=== PATIENT | male | born 1950 ===

== ENCOUNTER 2020-08-29 02:43 | Inpatient (IN) | payer MEDICARE, OTHER ==
[~2020-08-29] VITALS: Ht 185.4 cm; Wt 114.7 kg
[2020-08-29] MEDS ORDERED: SODIUM CHLORIDE FLUSH 10ML SYR IVF ONE (03:00)
[2020-08-29 03:14] LABS: BASOPHILS % (AUTO) 1 % (0-1); EOSINOPHILS % (AUTO) 2 % (1-7); LYMPHOCYTES % (AUTO) 5 % (22-44); MEAN CORPUSCULAR HEMOGLOBIN 30.3 pg (27.5-34.5); MEAN CORPUSCULAR HGB CONC 32.8 g/dL (33.2-36.2); MEAN PLATELET VOLUME 8.3 fL (7.4-10.4); MONOCYTES % (AUTO) 8 % (2-9); NEUTROPHILS % (AUTO) 85 % (42-75); PLATELET COUNT 289 x10^3/uL (130-400); RED BLOOD COUNT 3.61 x10^6/uL (4.38-5.82); RED CELL DISTRIBUTION WIDTH 15.3 % (9.4-14.8)
[2020-08-29 03:15] LABS: MD NO
[2020-08-29 03:26] LABS: ALANINE AMINOTRANSFERASE 9 U/L (12-78); ALBUMIN 2.5 g/dL (3.4-5.0); ANION GAP 10 mmol/L (5-15); CALCIUM 7.8 mg/dL (8.5-10.1); CHLORIDE 109 mmol/L (98-107)
[2020-08-29] MEDS ORDERED: NITROGLYCERIN OINT 2%, 1GM TP ONE ×2 (03:30→03:49)
[2020-08-29] MEDS ORDERED: LABETALOL 5MG/ML, 20ML IVPush ONE (03:30)
[2020-08-29 03:31] LABS: ALKALINE PHOSPHATASE 87 U/L (45-117); BILIRUBIN,TOTAL 0.3 mg/dL (0.2-1.0); TOTAL PROTEIN 6.4 g/dL (6.4-8.2); TROPONIN I 0.052 ng/mL (0.000-0.045)
[2020-08-29 03:33] LABS: MICROSCOPIC INDICATED
[2020-08-29 03:37] LABS: CHLORIDE,URINE RANDOM 104 mmol/L; POTASSIUM,URINE RANDOM 28 mmol/L; SODIUM,URINE RANDOM 94 mmol/L
[2020-08-29 03:49] LABS: CREATININE,URINE RANDOM 51.4 mg/dL
[2020-08-29] MEDS ORDERED: LABETALOL 5MG/ML, 20ML ONE (03:49)
[2020-08-29] MEDS ORDERED: SODIUM CHLORIDE 0.9% 1,000 ML IV SCH (04:00)
[2020-08-29] MEDS ORDERED: MAGNESIUM SULFATE PMX 2GM/50ML 50 ML IV ONE (04:00)
[2020-08-29] MEDS ORDERED: ONDANSETRON ODT 4 MG PO PRN (04:00)
[2020-08-29] MEDS ORDERED: ONDANSETRON 2MG/ML, 2ML IVPush PRN (04:00)
[2020-08-29] MEDS ORDERED: POLYETHYLENE GLYCOL 17 GM PACKET PO PRN (04:00)
[2020-08-29] MEDS ORDERED: morphine SULFATE 10 MG/ML, 1ML IVPush PRN (04:00)
[2020-08-29] MEDS ORDERED: hydrALAzine 20 MG/ML, 1ML IVPush PRN (04:00)
[2020-08-29] MEDS ORDERED: LABETALOL 5MG/ML, 20ML IVPush PRN (04:00)
[2020-08-29] MEDS ORDERED: OXYcodone IR 5MG TABLET PO PRN (04:00)
[2020-08-29] MEDS ORDERED: BISACODYL 10 MG SUPP PR PRN (04:00)
[2020-08-29] MEDS ORDERED: PROMETHAZINE 25 MG/ML, 1ML IM PRN (04:00)
[2020-08-29] MEDS ORDERED: DOCUSATE 100 MG CAPSULE PO PRN (04:00)
[2020-08-29] MEDS ORDERED: HEPARIN 5,000 UNITS/ML, 1ML ONE ×2 (04:22→12:01)
[2020-08-29] MEDS ORDERED: CEFTRIAXONE PMX 1GM/50ML 50 ML ONE (04:22)
[2020-08-29] MEDS ORDERED: MAGNESIUM SULFATE PMX 2GM/50ML 50 ML ONE (04:22)
[2020-08-29 04:39] LABS: FREE T4 (FREE THYROXINE) 1.04 ng/dL (0.76-1.46)
[2020-08-29] MEDS: AZITHROMYCIN 500 MG in SODIUM CHLORIDE 0.9% 250 ML IV SCH (04:40)
[2020-08-29] MEDS: HEPARIN 5,000 UNITS/ML, 1ML SQ SCH ×2 (04:48→12:06)
[2020-08-29] MEDS: CEFTRIAXONE PMX 2GM/50ML 50 ML IVPB SCH (04:48)
--- NOTE | 2020-08-29 05:16 | NUR ---
pt resting in bed, no complaints at this time, vss
--- NOTE | 2020-08-29 06:14 | NUR ---
pt resting in bed with no complaints, vss
[2020-08-29] MEDS: INSULIN LISPRO 100 UNITS/ML, PEN SQ-INSULIN SCH ×4 (06:15→22:19)
--- NOTE | 2020-08-29 07:03 | NUR ---
REPORT RECIVED, PT LAYING IN BED NO DISTRESS
--- NOTE | 2020-08-29 07:47 | NUR ---
Hospital bed requested for pt.
--- NOTE | 2020-08-29 08:15 | NUR ---
PT IN BED NO CHANGE,
--- NOTE | 2020-08-29 08:42 | NUR ---
PT IN BED, NO CHANGE, GAVE MEAL TRAY
--- NOTE | 2020-08-29 09:44 | NUR ---
Second request for hospital bed for pt.
[2020-08-29 09:49] LABS: TROPONIN I 0.067 ng/mL (0.000-0.045)
--- NOTE | 2020-08-29 10:13 | NUR ---
changed pt to a hospital bed , no change
--- NOTE | 2020-08-29 11:15 | NUR ---
pt in bed no change
[2020-08-29 11:56] LABS: TROPONIN I 0.064 ng/mL (0.000-0.045)
[2020-08-29] MEDS: SEVELAMER CARBONATE 800MG TAB PO SCH ×2 (12:07→17:00)
--- NOTE | 2020-08-29 13:02 | NUR ---
BREAK RN: PT SLEEPING ON HOSPITAL BED W/ CALL LIGHT IN REACH AND SIDE RAILS UPX2. RESP EVEN AND UNLABORED, KESHIA.
--- NOTE | 2020-08-29 15:11 | NUR ---
PT IN BED NO CHANGE
--- NOTE | 2020-08-29 15:31 | NUR ---
I AM ASSUMING CARE OF THIS PT FROM EDDIE (WILLIAM) AT THIS TIME. SBAR WAS EXCHANGED AT THE BEDSIDE.
--- NOTE | 2020-08-29 15:42 | NUR ---
ECHO IS AT THE BEDSIDE FOR STUDY.
[2020-08-29] MEDS: FUROSEMIDE 40 MG/4 ML IV SCH (17:00)
[2020-08-29] MEDS ORDERED: FUROSEMIDE 40 MG/4 ML ONE (17:30)
--- NOTE | 2020-08-29 17:36 | NUR ---
NO INSULIN COVERAGE REQUIRED FOR DINNER
--- NOTE | 2020-08-29 18:55 | NUR ---
DOLORES (RN) IS ASSUMING CARE OF THIS PT AT THIS TIME. SBAR WAS EXCHANGED AT THE BEDSIDE
--- NOTE | 2020-08-29 19:28 | NUR ---
report from william kurtz at 1900. Very brief contact to butch guzman. 1929: Report to WILLIAM locke
[2020-08-29 20:30] VITALS: BP 158/104
[2020-08-29] MEDS ORDERED: FLU VACC QS2020-21(6MOS UP)/PF 60MCG/0.5 ML SYR IM-VACC ONE (22:00)
[2020-08-30 00:08] VITALS: BP 155/91
[2020-08-30] MEDS: CEFTRIAXONE PMX 2GM/50ML 50 ML IVPB SCH (04:28)
[2020-08-30] MEDS: AZITHROMYCIN 500 MG in SODIUM CHLORIDE 0.9% 250 ML IV SCH (05:52)
[2020-08-30 06:22] LABS: BASOPHILS % (AUTO) 1 % (0-1); EOSINOPHILS % (AUTO) 0 % (1-7); LYMPHOCYTES % (AUTO) 4 % (22-44); MEAN CORPUSCULAR HEMOGLOBIN 30.2 pg (27.5-34.5); MEAN CORPUSCULAR HGB CONC 32.7 g/dL (33.2-36.2); MONOCYTES % (AUTO) 7 % (2-9); NEUTROPHILS % (AUTO) 87 % (42-75); PLATELET COUNT 292 x10^3/uL (130-400); RED CELL DISTRIBUTION WIDTH 15.3 % (9.4-14.8)
[2020-08-30 06:30] LABS: CHLORIDE 108 mmol/L (98-107); MD NO
[2020-08-30 06:41] LABS: % IRON SATURATION 9 % (20-55); ALANINE AMINOTRANSFERASE 10 U/L (12-78); ALBUMIN 2.2 g/dL (3.4-5.0); ALKALINE PHOSPHATASE 75 U/L (45-117); ANION GAP 15 mmol/L (5-15); BILIRUBIN,TOTAL 0.3 mg/dL (0.2-1.0); CALCIUM 7.9 mg/dL (8.5-10.1); CHOL/HDL RATIO 5.3; CHOLESTEROL, TOTAL 255 mg/dL (140-239); HDL CHOL % 19 % (26-37); HDL CHOLESTEROL (DIRECT) 48 mg/dL (40-60); IRON LEVEL 19 mcg/dL (65-175); LDL CHOLESTEROL,CALCULATED 182 mg/dL (54-169); LDL/HDL RATIO 3.8 (0.5-3.0); TOTAL IRON BINDING CAPACITY 209 mcg/dL (250-450); TOTAL PROTEIN 6.3 g/dL (6.4-8.2); TRIGLYCERIDES 123 mg/dL (50-200); VLDL CHOLESTEROL 25 mg/dL (0-25)
[2020-08-30 06:55] VITALS: BP 134/91
[2020-08-30] MEDS: INSULIN LISPRO 100 UNITS/ML, PEN SQ-INSULIN SCH ×4 (07:00→20:02)
[2020-08-30] MEDS: SEVELAMER CARBONATE 800MG TAB PO SCH ×3 (08:00→17:52)
[2020-08-30 12:02] LABS: TROPONIN I 0.077 ng/mL (0.000-0.045)
[2020-08-30] MEDS: CALCITRIOL 0.25 MCG CAPSULE PO SCH (14:46)
[2020-08-30] MEDS: LISINOPRIL 5 MG TABLET PO SCH (14:46)
[2020-08-30] MEDS: FUROSEMIDE 40 MG/4 ML IV SCH ×2 (14:47→17:09)
[2020-08-30 15:04] VITALS: BP 158/116
[2020-08-30 15:31] VITALS: BP 164/114
[2020-08-30] MEDS ORDERED: DILTIAZEM 5 MG/ML, 5ML ONE (21:41)
[2020-08-30] MEDS ORDERED: DILTIAZEM 5 MG/ML, 5ML IVPush ONE ×2 (22:00→22:30)
[2020-08-30] MEDS: IRON SUCROSE COMPLEX 100MG/5ML IV SCH (23:14)
[2020-08-30 23:30] VITALS: BP 148/90
[2020-08-30] MEDS: DILTIAZEM 125 MG in SODIUM CHLORIDE 0.9% 100 ML IV SCH (23:33)
[2020-08-31] MEDS ORDERED: DILTIAZEM 5 MG/ML, 5ML IVPush ONE (00:30)
[2020-08-31] MEDS ORDERED: MAGNESIUM SULFATE PMX 2GM/50ML 50 ML IV ONE (00:30)
[2020-08-31] MEDS ORDERED: HEPARIN 5,000 UNITS/ML, 1ML IV ONE (00:30)
[2020-08-31 00:35] VITALS: BP 122/77
[2020-08-31 00:37] VITALS: BP 113/79
[2020-08-31 00:51] LABS: TROPONIN I 0.074 ng/mL (0.000-0.045)
[2020-08-31] MEDS: HEPARIN 25,000 UNITS/250ML PMX 250 ML IV PRN ×2 (00:56→18:21)
[2020-08-31] MEDS: CEFTRIAXONE PMX 2GM/50ML 50 ML IVPB SCH (04:19)
[2020-08-31] MEDS: AZITHROMYCIN 500 MG in SODIUM CHLORIDE 0.9% 250 ML IV SCH (05:37)
[2020-08-31] MEDS: INSULIN LISPRO 100 UNITS/ML, PEN SQ-INSULIN SCH ×4 (06:36→21:54)
[2020-08-31 07:53] VITALS: BP 144/90
[2020-08-31 08:51] LABS: TROPONIN I 0.058 ng/mL (0.000-0.045)
[2020-08-31] MEDS: HEPARIN 5,000 UNITS/ML, 1ML IV PRN ×2 (09:14→18:22)
[2020-08-31] MEDS: SEVELAMER CARBONATE 800MG TAB PO SCH ×3 (09:40→18:20)
[2020-08-31] MEDS: FUROSEMIDE 40 MG/4 ML IV SCH ×2 (09:40→18:29)
[2020-08-31] MEDS: IRON SUCROSE COMPLEX 100MG/5ML IV SCH (09:41)
[2020-08-31] MEDS: CALCITRIOL 0.25 MCG CAPSULE PO SCH (09:41)
[2020-08-31] MEDS: LISINOPRIL 5 MG TABLET PO SCH (09:41)
[2020-08-31 10:41] LABS: BASOPHILS % (AUTO) 1 % (0-1); EOSINOPHILS % (AUTO) 2 % (1-7); LYMPHOCYTES % (AUTO) 7 % (22-44); MEAN CORPUSCULAR HEMOGLOBIN 30.8 pg (27.5-34.5); MEAN CORPUSCULAR HGB CONC 33.2 g/dL (33.2-36.2); MEAN PLATELET VOLUME 9.1 fL (7.4-10.4); MONOCYTES % (AUTO) 9 % (2-9); NEUTROPHILS % (AUTO) 82 % (42-75); PLATELET COUNT 287 x10^3/uL (130-400); RED BLOOD COUNT 3.49 x10^6/uL (4.38-5.82); RED CELL DISTRIBUTION WIDTH 15.4 % (9.4-14.8)
[2020-08-31 10:42] LABS: MD NO
[2020-08-31 11:18] LABS: ANION GAP 12 mmol/L (5-15); CALCIUM 7.7 mg/dL (8.5-10.1); CHLORIDE 106 mmol/L (98-107)
[2020-08-31 11:21] LABS: ALANINE AMINOTRANSFERASE 11 U/L (12-78); ALKALINE PHOSPHATASE 69 U/L (45-117); BILIRUBIN,TOTAL 0.2 mg/dL (0.2-1.0); CREATININE 8.67 mg/dL (0.7-1.3); TOTAL PROTEIN 5.3 g/dL (6.4-8.2)
[2020-08-31 12:46] VITALS: BP 137/76
[2020-08-31] MEDS: DILTIAZEM 125 MG in SODIUM CHLORIDE 0.9% 100 ML IV SCH (13:18)
[2020-08-31] MEDS ORDERED: DILTIAZEM 120 MG TABLET PO SCH (21:00)
[2020-08-31 22:12] VITALS: BP 129/82
[2020-09-01 01:05] VITALS: BP 132/79
[2020-09-01] MEDS: CEFTRIAXONE PMX 2GM/50ML 50 ML IVPB SCH (04:36)
[2020-09-01] MEDS: AZITHROMYCIN 500 MG in SODIUM CHLORIDE 0.9% 250 ML IV SCH (06:40)
[2020-09-01 07:04] VITALS: BP 132/86
[2020-09-01] MEDS: METOPROLOL TARTRATE 25 MG TAB PO SCH ×2 (07:45→18:46)
[2020-09-01] MEDS: CALCITRIOL 0.25 MCG CAPSULE PO SCH (07:45)
[2020-09-01] MEDS: INSULIN LISPRO 100 UNITS/ML, PEN SQ-INSULIN SCH ×4 (07:45→21:37)
[2020-09-01] MEDS: FUROSEMIDE 40 MG/4 ML IV SCH ×2 (07:45→17:00)
[2020-09-01] MEDS: SEVELAMER CARBONATE 800MG TAB PO SCH ×3 (07:45→18:46)
[2020-09-01] MEDS: IRON SUCROSE COMPLEX 100MG/5ML IV SCH (07:45)
[2020-09-01] MEDS: LISINOPRIL 5 MG TABLET PO SCH (07:45)
[2020-09-01] MEDS: HEPARIN 5,000 UNITS/ML, 1ML IV PRN (09:42)
[2020-09-01] MEDS: DILTIAZEM 30 MG TABLET PO SCH ×3 (11:19→21:36)
[2020-09-01] MEDS: HEPARIN 25,000 UNITS/250ML PMX 250 ML IV PRN (13:34)
[2020-09-01 13:39] VITALS: BP 121/79
[2020-09-01 18:39] VITALS: BP 132/92
[2020-09-01] MEDS: ACETAMINOPHEN 325 MG TABLET PO PRN (18:46)
[2020-09-02 00:32] VITALS: BP 139/83
[2020-09-02] MEDS: CEFTRIAXONE PMX 2GM/50ML 50 ML IVPB SCH (04:30)
[2020-09-02 06:06] LABS: BASOPHILS % (AUTO) 1 % (0-1); EOSINOPHILS % (AUTO) 5 % (1-7); LYMPHOCYTES % (AUTO) 12 % (22-44); MEAN CORPUSCULAR HEMOGLOBIN 31.2 pg (27.5-34.5); MEAN CORPUSCULAR HGB CONC 33.6 g/dL (33.2-36.2); MEAN PLATELET VOLUME 8.7 fL (7.4-10.4); MONOCYTES % (AUTO) 12 % (2-9); NEUTROPHILS % (AUTO) 70 % (42-75); PLATELET COUNT 276 x10^3/uL (130-400); RED BLOOD COUNT 3.26 x10^6/uL (4.38-5.82)
[2020-09-02] MEDS: DILTIAZEM 30 MG TABLET PO SCH ×4 (06:10→22:35)
[2020-09-02] MEDS: METOPROLOL TARTRATE 25 MG TAB PO SCH ×2 (06:10→17:43)
[2020-09-02] MEDS: AZITHROMYCIN 500 MG in SODIUM CHLORIDE 0.9% 250 ML IV SCH (06:10)
[2020-09-02 06:11] LABS: MD NO
[2020-09-02 06:15] LABS: ANION GAP 6 mmol/L (5-15); CALCIUM 8.1 mg/dL (8.5-10.1); CHLORIDE 99 mmol/L (98-107); CREATININE 5.35 mg/dL (0.7-1.3)
[2020-09-02] MEDS: INSULIN LISPRO 100 UNITS/ML, PEN SQ-INSULIN SCH ×4 (07:00→22:46)
[2020-09-02] MEDS ORDERED: POTASSIUM CHLORIDE 20 MEQ TAB.ER.PRT PO ONE (07:30)
[2020-09-02] MEDS: SEVELAMER CARBONATE 800MG TAB PO SCH ×3 (08:00→17:40)
[2020-09-02 08:06] VITALS: BP 138/86
[2020-09-02] MEDS ORDERED: LIDOCAINE 1%, 20ML ONE (09:49)
[2020-09-02] MEDS ORDERED: NALOXONE 1 MG/ML, 2ML ONE (10:00)
[2020-09-02] MEDS ORDERED: FENTANYL PF 100 MCG/2ML ONE (10:00)
[2020-09-02] MEDS ORDERED: MIDAZOLAM 1 MG/ML, 5ML ONE (10:00)
[2020-09-02] MEDS ORDERED: FLUMAZENIL 0.1 MG/1 ML, 5ML ONE (10:00)
[2020-09-02] MEDS ORDERED: ARANESP 60 MCG/ML **ESRD SQ SCH (11:30)
[2020-09-02] MEDS: CALCITRIOL 0.25 MCG CAPSULE PO SCH (12:13)
[2020-09-02] MEDS: IRON SUCROSE COMPLEX 100MG/5ML IV SCH (12:14)
[2020-09-02] MEDS: LISINOPRIL 5 MG TABLET PO SCH (12:14)
[2020-09-02] MEDS ORDERED: POTASSIUM CHLORIDE 20 MEQ TAB.ER.PRT ONE (12:31)
[2020-09-02] MEDS: FUROSEMIDE 40 MG/4 ML IV SCH ×2 (12:35→17:40)
[2020-09-02 13:15] VITALS: BP 112/71
[2020-09-02 15:43] LABS: ANA SCREEN NEGATIVE (Negative)
[2020-09-02 19:04] VITALS: BP 134/89
[2020-09-03 00:49] VITALS: BP 139/85
[2020-09-03] MEDS: CEFTRIAXONE PMX 2GM/50ML 50 ML IVPB SCH (04:41)
[2020-09-03] MEDS: METOPROLOL TARTRATE 25 MG TAB PO SCH ×2 (06:26→17:41)
[2020-09-03] MEDS: DILTIAZEM 30 MG TABLET PO SCH ×4 (06:26→21:17)
[2020-09-03] MEDS: AZITHROMYCIN 500 MG in SODIUM CHLORIDE 0.9% 250 ML IV SCH (06:27)
[2020-09-03] MEDS: HEPARIN 25,000 UNITS/250ML PMX 250 ML IV PRN ×2 (06:30→23:43)
[2020-09-03] MEDS: HEPARIN 5,000 UNITS/ML, 1ML IV PRN ×3 (06:35→21:27)
[2020-09-03] MEDS: INSULIN LISPRO 100 UNITS/ML, PEN SQ-INSULIN SCH ×4 (07:00→21:16)
[2020-09-03 07:30] VITALS: BP 134/83
[2020-09-03] MEDS: SEVELAMER CARBONATE 800MG TAB PO SCH ×3 (08:00→17:41)
[2020-09-03] MEDS: FUROSEMIDE 40 MG/4 ML IV SCH ×2 (10:33→17:41)
[2020-09-03] MEDS: IRON SUCROSE COMPLEX 100MG/5ML IV SCH (10:34)
[2020-09-03] MEDS: CALCITRIOL 0.25 MCG CAPSULE PO SCH (10:34)
[2020-09-03] MEDS: LISINOPRIL 5 MG TABLET PO SCH (14:05)
[2020-09-03 14:06] VITALS: BP 150/89
[2020-09-03 15:18] VITALS: BP 143/81
[2020-09-03 21:12] VITALS: BP 142/88
[2020-09-04 02:04] VITALS: BP 143/93
[2020-09-04] MEDS: CEFTRIAXONE PMX 2GM/50ML 50 ML IVPB SCH (04:21)
[2020-09-04] MEDS: METOPROLOL TARTRATE 25 MG TAB PO SCH ×2 (05:59→18:33)
[2020-09-04] MEDS: DILTIAZEM 30 MG TABLET PO SCH ×4 (05:59→21:06)
[2020-09-04] MEDS: INSULIN LISPRO 100 UNITS/ML, PEN SQ-INSULIN SCH ×4 (07:00→21:00)
[2020-09-04 07:54] VITALS: BP 144/89
[2020-09-04] MEDS: CALCITRIOL 0.25 MCG CAPSULE PO SCH (08:42)
[2020-09-04] MEDS: SEVELAMER CARBONATE 800MG TAB PO SCH ×3 (08:42→17:16)
[2020-09-04] MEDS: FUROSEMIDE 40 MG/4 ML IV SCH ×2 (08:43→17:17)
[2020-09-04] MEDS: LISINOPRIL 5 MG TABLET PO SCH (08:43)
[2020-09-04] MEDS: HEPARIN 5,000 UNITS/ML, 1ML IV PRN ×2 (11:12→20:55)
[2020-09-04 14:44] VITALS: BP 145/89
[2020-09-04 17:16] VITALS: BP 154/96
[2020-09-04 18:31] VITALS: BP 150/99
[2020-09-04] MEDS: HEPARIN 25,000 UNITS/250ML PMX 250 ML IV PRN (18:34)
[2020-09-05 02:26] VITALS: BP 147/73
[2020-09-05 04:05] LABS: BASOPHILS % (AUTO) 1 % (0-1); EOSINOPHILS % (AUTO) 5 % (1-7); LYMPHOCYTES % (AUTO) 11 % (22-44); MEAN CORPUSCULAR HEMOGLOBIN 30.3 pg (27.5-34.5); MEAN CORPUSCULAR HGB CONC 32.5 g/dL (33.2-36.2); MEAN PLATELET VOLUME 8.4 fL (7.4-10.4); MONOCYTES % (AUTO) 10 % (2-9); NEUTROPHILS % (AUTO) 73 % (42-75); PLATELET COUNT 308 x10^3/uL (130-400); RED BLOOD COUNT 3.67 x10^6/uL (4.38-5.82); RED CELL DISTRIBUTION WIDTH 14.8 % (9.4-14.8)
[2020-09-05] MEDS: CEFTRIAXONE PMX 2GM/50ML 50 ML IVPB SCH (04:06)
[2020-09-05 04:07] LABS: ANION GAP 9 mmol/L (5-15); CALCIUM 8.3 mg/dL (8.5-10.1); CHLORIDE 99 mmol/L (98-107)
[2020-09-05 04:08] LABS: MD NO
[2020-09-05 04:11] LABS: ALANINE AMINOTRANSFERASE 19 U/L (12-78); ALKALINE PHOSPHATASE 81 U/L (45-117); BILIRUBIN,TOTAL 0.6 mg/dL (0.2-1.0); CREATININE 7.11 mg/dL (0.7-1.3)
[2020-09-05] MEDS: DILTIAZEM 30 MG TABLET PO SCH ×4 (06:12→22:25)
[2020-09-05] MEDS: METOPROLOL TARTRATE 25 MG TAB PO SCH ×2 (06:13→17:27)
[2020-09-05] MEDS: INSULIN LISPRO 100 UNITS/ML, PEN SQ-INSULIN SCH ×4 (06:19→22:26)
[2020-09-05] MEDS: FUROSEMIDE 40 MG/4 ML IV SCH ×2 (07:30→17:27)
[2020-09-05] MEDS: HEPARIN 25,000 UNITS/250ML PMX 250 ML IV PRN (07:48)
[2020-09-05 08:24] VITALS: BP 141/86
[2020-09-05] MEDS: SEVELAMER CARBONATE 800MG TAB PO SCH ×3 (12:00→17:27)
[2020-09-05] MEDS ORDERED: ERGOCALCIFEROL 50,000 UNIT CAPSULE PO SCH (12:00)
[2020-09-05] MEDS: CALCITRIOL 0.25 MCG CAPSULE PO SCH (14:20)
[2020-09-05] MEDS: LISINOPRIL 5 MG TABLET PO SCH (14:22)
[2020-09-05 14:26] VITALS: BP 108/67
[2020-09-05 14:53] VITALS: BP 110/76
[2020-09-05] MEDS: APIXABAN 5 MG TABLET PO SCH (15:44)
[2020-09-05 20:49] VITALS: BP 121/70
[2020-09-06 02:09] VITALS: BP 112/81
[2020-09-06] MEDS: CEFTRIAXONE PMX 2GM/50ML 50 ML IVPB SCH (04:30)
[2020-09-06] MEDS: METOPROLOL TARTRATE 25 MG TAB PO SCH ×2 (06:01→17:46)
[2020-09-06] MEDS: APIXABAN 5 MG TABLET PO SCH ×2 (06:01→20:23)
[2020-09-06] MEDS: DILTIAZEM 30 MG TABLET PO SCH ×4 (06:01→22:53)
[2020-09-06] MEDS: INSULIN LISPRO 100 UNITS/ML, PEN SQ-INSULIN SCH ×4 (06:08→21:00)
[2020-09-06 07:28] VITALS: BP 133/85
[2020-09-06] MEDS: FUROSEMIDE 40 MG/4 ML IV SCH ×2 (07:58→16:38)
[2020-09-06] MEDS: LISINOPRIL 5 MG TABLET PO SCH (07:59)
[2020-09-06] MEDS: SEVELAMER CARBONATE 800MG TAB PO SCH ×3 (07:59→16:38)
[2020-09-06] MEDS: CALCITRIOL 0.25 MCG CAPSULE PO SCH (08:27)
[2020-09-06 08:54] LABS: ANION GAP 7 mmol/L (5-15); CALCIUM 8.5 mg/dL (8.5-10.1); CHLORIDE 98 mmol/L (98-107); CREATININE 6.33 mg/dL (0.7-1.3)
[2020-09-06 13:46] VITALS: BP 115/72
[2020-09-06 19:44] VITALS: BP 113/56
[2020-09-06 20:24] VITALS: BP 119/77
[2020-09-07 01:05] VITALS: BP 134/84
[2020-09-07] MEDS: CEFTRIAXONE PMX 2GM/50ML 50 ML IVPB SCH (05:05)
[2020-09-07 06:04] LABS: ALANINE AMINOTRANSFERASE 21 U/L (12-78); ALBUMIN 2.2 g/dL (3.4-5.0); ANION GAP 8 mmol/L (5-15); CALCIUM 8.4 mg/dL (8.5-10.1); CHLORIDE 97 mmol/L (98-107)
[2020-09-07 06:06] LABS: BASOPHILS % (AUTO) 1 % (0-1); EOSINOPHILS % (AUTO) 5 % (1-7); LYMPHOCYTES % (AUTO) 7 % (22-44); MEAN CORPUSCULAR HGB CONC 32.8 g/dL (33.2-36.2); MEAN PLATELET VOLUME 8.3 fL (7.4-10.4); MONOCYTES % (AUTO) 11 % (2-9); NEUTROPHILS % (AUTO) 77 % (42-75); PLATELET COUNT 315 x10^3/uL (130-400); RED BLOOD COUNT 3.49 x10^6/uL (4.38-5.82); RED CELL DISTRIBUTION WIDTH 14.8 % (9.4-14.8)
[2020-09-07 06:07] LABS: ALKALINE PHOSPHATASE 87 U/L (45-117); BILIRUBIN,TOTAL 0.4 mg/dL (0.2-1.0); CREATININE 7.77 mg/dL (0.7-1.3); TOTAL PROTEIN 6.1 g/dL (6.4-8.2)
[2020-09-07 06:27] LABS: MD NO
[2020-09-07 06:34] VITALS: BP 118/73
[2020-09-07] MEDS: METOPROLOL TARTRATE 25 MG TAB PO SCH ×2 (06:37→16:01)
[2020-09-07] MEDS: DILTIAZEM 30 MG TABLET PO SCH ×4 (06:37→21:17)
[2020-09-07] MEDS: INSULIN LISPRO 100 UNITS/ML, PEN SQ-INSULIN SCH ×4 (06:59→21:26)
[2020-09-07 07:20] VITALS: BP 109/71
[2020-09-07] MEDS: APIXABAN 5 MG TABLET PO SCH ×2 (10:18→21:17)
[2020-09-07] MEDS: FUROSEMIDE 40 MG/4 ML IV SCH ×2 (10:18→16:01)
[2020-09-07] MEDS: CALCITRIOL 0.25 MCG CAPSULE PO SCH (10:18)
[2020-09-07] MEDS: LISINOPRIL 5 MG TABLET PO SCH (10:18)
[2020-09-07] MEDS: SEVELAMER CARBONATE 800MG TAB PO SCH ×3 (10:26→16:01)
[2020-09-07 13:11] VITALS: BP 109/71
[2020-09-07 21:33] VITALS: BP 119/73
[2020-09-07 23:50] VITALS: BP 120/79
[2020-09-08 06:11] LABS: BASOPHILS % (AUTO) 1 % (0-1); EOSINOPHILS % (AUTO) 6 % (1-7); LYMPHOCYTES % (AUTO) 8 % (22-44); MEAN CORPUSCULAR HEMOGLOBIN 31.1 pg (27.5-34.5); MEAN CORPUSCULAR HGB CONC 32.9 g/dL (33.2-36.2); MEAN PLATELET VOLUME 8.4 fL (7.4-10.4); MONOCYTES % (AUTO) 10 % (2-9); NEUTROPHILS % (AUTO) 74 % (42-75); PLATELET COUNT 320 x10^3/uL (130-400); RED BLOOD COUNT 3.45 x10^6/uL (4.38-5.82); RED CELL DISTRIBUTION WIDTH 14.7 % (9.4-14.8)
[2020-09-08 06:17] LABS: ALBUMIN 2.2 g/dL (3.4-5.0); ANION GAP 9 mmol/L (5-15); CALCIUM 8.3 mg/dL (8.5-10.1); CHLORIDE 97 mmol/L (98-107)
[2020-09-08 06:22] LABS: ALANINE AMINOTRANSFERASE 21 U/L (12-78); ALKALINE PHOSPHATASE 91 U/L (45-117); BILIRUBIN,TOTAL 0.5 mg/dL (0.2-1.0); TOTAL PROTEIN 6.1 g/dL (6.4-8.2)
[2020-09-08] MEDS: INSULIN LISPRO 100 UNITS/ML, PEN SQ-INSULIN SCH ×4 (06:32→21:36)
[2020-09-08] MEDS: METOPROLOL TARTRATE 25 MG TAB PO SCH ×2 (06:40→16:26)
[2020-09-08] MEDS: DILTIAZEM 30 MG TABLET PO SCH ×4 (06:40→21:37)
[2020-09-08 06:43] VITALS: BP 127/80
[2020-09-08 06:43] LABS: MD NO
[2020-09-08] MEDS ORDERED: POTASSIUM CHLORIDE 20 MEQ TAB.ER.PRT PO ONE (08:30)
[2020-09-08] MEDS: CALCITRIOL 0.25 MCG CAPSULE PO SCH (09:20)
[2020-09-08] MEDS: FUROSEMIDE 40 MG/4 ML IV SCH (09:21)
[2020-09-08] MEDS: APIXABAN 5 MG TABLET PO SCH ×2 (09:21→21:36)
[2020-09-08] MEDS: LISINOPRIL 5 MG TABLET PO SCH (09:21)
[2020-09-08] MEDS: SEVELAMER CARBONATE 800MG TAB PO SCH ×4 (09:21→17:00)
[2020-09-08] MEDS: CEFTRIAXONE PMX 2GM/50ML 50 ML IVPB SCH (16:24)
[2020-09-08] MEDS: FUROSEMIDE 80 MG TABLET PO SCH (16:25)
[2020-09-08 21:26] VITALS: BP 128/81
[2020-09-08] MEDS: ACETAMINOPHEN 325 MG TABLET PO PRN (21:37)
[2020-09-09 02:03] VITALS: BP 131/80
[2020-09-09] MEDS: METOPROLOL TARTRATE 25 MG TAB PO SCH ×2 (06:38→17:13)
[2020-09-09] MEDS: DILTIAZEM 30 MG TABLET PO SCH ×4 (06:39→21:34)
[2020-09-09] MEDS: INSULIN LISPRO 100 UNITS/ML, PEN SQ-INSULIN SCH ×4 (07:00→21:35)
[2020-09-09 07:14] VITALS: BP 127/87
[2020-09-09 07:20] LABS: BASOPHILS % (AUTO) 1 % (0-1); EOSINOPHILS % (AUTO) 6 % (1-7); LYMPHOCYTES % (AUTO) 8 % (22-44); MEAN CORPUSCULAR HEMOGLOBIN 31.2 pg (27.5-34.5); MEAN PLATELET VOLUME 8.2 fL (7.4-10.4); MONOCYTES % (AUTO) 11 % (2-9); NEUTROPHILS % (AUTO) 73 % (42-75); PLATELET COUNT 353 x10^3/uL (130-400); RED CELL DISTRIBUTION WIDTH 14.8 % (9.4-14.8)
[2020-09-09 07:29] LABS: MD NO
[2020-09-09 07:30] LABS: ANION GAP 8 mmol/L (5-15); CALCIUM 8.7 mg/dL (8.5-10.1); CHLORIDE 101 mmol/L (98-107); CREATININE 7.46 mg/dL (0.7-1.3)
[2020-09-09] MEDS: LISINOPRIL 5 MG TABLET PO SCH (08:36)
[2020-09-09] MEDS: APIXABAN 5 MG TABLET PO SCH ×2 (08:36→21:34)
[2020-09-09] MEDS: FUROSEMIDE 80 MG TABLET PO SCH ×2 (08:36→21:34)
[2020-09-09] MEDS: CALCITRIOL 0.25 MCG CAPSULE PO SCH (08:36)
[2020-09-09 12:16] VITALS: BP 123/83
[2020-09-09] MEDS: SEVELAMER CARBONATE 800MG TAB PO SCH ×2 (12:35→17:13)
[2020-09-09] MEDS: ACETAMINOPHEN 325 MG TABLET PO PRN (17:17)
[2020-09-09 19:49] VITALS: BP 117/80
[2020-09-10 00:44] VITALS: BP 111/72
[2020-09-10 05:49] VITALS: BP 121/82
[2020-09-10] MEDS: METOPROLOL TARTRATE 25 MG TAB PO SCH (05:50)
[2020-09-10] MEDS: DILTIAZEM 30 MG TABLET PO SCH ×2 (05:50→11:56)
[2020-09-10] MEDS: INSULIN LISPRO 100 UNITS/ML, PEN SQ-INSULIN SCH ×2 (07:00→11:00)
[2020-09-10 07:06] VITALS: BP 116/78
[2020-09-10] MEDS: CALCITRIOL 0.25 MCG CAPSULE PO SCH (10:09)
[2020-09-10] MEDS: FUROSEMIDE 80 MG TABLET PO SCH (10:09)
[2020-09-10] MEDS: APIXABAN 5 MG TABLET PO SCH (10:09)
[2020-09-10] MEDS: SEVELAMER CARBONATE 800MG TAB PO SCH (10:09)
[2020-09-10] MEDS: LISINOPRIL 5 MG TABLET PO SCH (10:09)
[2020-09-10] MEDS ORDERED: SEVE800T8 PO (12:16)
[2020-09-10] MEDS ORDERED: DILT30TA27 PO (12:16)
[2020-09-10] MEDS ORDERED: ERGO500017 PO (12:16)
[2020-09-10] MEDS ORDERED: LISI5TAB7 PO (12:16)
[2020-09-10] MEDS ORDERED: FURO80TA3 PO (12:16)
[2020-09-10] MEDS ORDERED: METO25TA35 PO (12:16)
[2020-09-10] MEDS ORDERED: CALC0.25 PO (12:16)
[2020-09-10] MEDS ORDERED: APIX5TAB PO (12:16)
== END 2020-09-10 13:54 | disposition home or self-care (01) | DRG 280 ==
LOC: ED 03:17 → EDIP 03:40 → 5SO 20:14 → 3WST 09-06 05:00 → 5SO 09-06 18:21 → 3N 09-09 16:45 → DCLOUNGE 09-10 13:30
PROVIDERS: ADMIT Internal Medicine; ATTEND Family Medicine
PROC: 02HV33Z Insertion of Infusion Device into Superior Vena Cava, Percutaneous Approach (ICD-10-PCS; principal; 2020-08-30)
PROC: B5181ZA Fluoroscopy of Superior Vena Cava using Low Osmolar Contrast, Guidance (ICD-10-PCS; 2020-08-30)
PROC: B548ZZA Ultrasonography of Superior Vena Cava, Guidance (ICD-10-PCS; 2020-08-30)
PROC: 5A1D70Z Performance of Urinary Filtration, Intermittent, Less than 6 Hours Per Day (ICD-10-PCS; 2020-08-30)
PROC: 5A1D70Z Performance of Urinary Filtration, Intermittent, Less than 6 Hours Per Day (ICD-10-PCS; 2020-08-31)
PROC: 5A1D70Z Performance of Urinary Filtration, Intermittent, Less than 6 Hours Per Day (ICD-10-PCS; 2020-09-01)
PROC: 0JH63XZ Insertion of Tunneled Vascular Access Device into Chest Subcutaneous Tissue and Fascia, Percutaneous Approach (ICD-10-PCS; 2020-09-02)
PROC: 02H633Z Insertion of Infusion Device into Right Atrium, Percutaneous Approach (ICD-10-PCS; 2020-09-02)
PROC: B5181ZA Fluoroscopy of Superior Vena Cava using Low Osmolar Contrast, Guidance (ICD-10-PCS; 2020-09-02)
PROC: B548ZZA Ultrasonography of Superior Vena Cava, Guidance (ICD-10-PCS; 2020-09-02)
PROC: 5A1D70Z Performance of Urinary Filtration, Intermittent, Less than 6 Hours Per Day (ICD-10-PCS; 2020-09-03)
PROC: 5A1D70Z Performance of Urinary Filtration, Intermittent, Less than 6 Hours Per Day (ICD-10-PCS; 2020-09-05)
PROC: 5A1D70Z Performance of Urinary Filtration, Intermittent, Less than 6 Hours Per Day (ICD-10-PCS; 2020-09-08)
PROC: 5A1D70Z Performance of Urinary Filtration, Intermittent, Less than 6 Hours Per Day (ICD-10-PCS; 2020-09-09)
DX: I13.2 Hypertensive heart and chronic kidney disease with heart failure and with stage 5 chronic kidney disease, or end stage renal disease (principal); J18.9 Pneumonia, unspecified organism; I21.A1 Myocardial infarction type 2; I50.43 Acute on chronic combined systolic (congestive) and diastolic (congestive) heart failure; N18.6 End stage renal disease; E87.2 Acidosis; J98.11 Atelectasis; N25.81 Secondary hyperparathyroidism of renal origin; N17.9 Acute kidney failure, unspecified; D63.8 Anemia in other chronic diseases classified elsewhere; E11.22 Type 2 diabetes mellitus with diabetic chronic kidney disease; E11.319 Type 2 diabetes mellitus with unspecified diabetic retinopathy without macular edema; E55.9 Vitamin D deficiency, unspecified; I34.0 Nonrheumatic mitral (valve) insufficiency; I48.91 Unspecified atrial fibrillation; Z20.828 Contact with and (suspected) exposure to other viral communicable diseases
CPT/HCPCS: 36415; 36558; 71045; 76770; 76937; 77001; 80048; 80053; 80061; 81001; 82306; 82436; 82570; 82728; 82962; 83036; 83516; 83520; 83540; 83550; 83735; 83880; 83883; 83970; 84100; 84133; 84145; 84155; 84156; 84165; 84166; 84300; 84439; 84443; 84484; 85025; 85520; 86038; 86160; 86162; 86225; 86256; 86480; 86704; 86705; 86706; 86708; 86803; 87040; 87340; 90686; 90935; 93005; 93306; 96372; 96374; 96375; 99156; 99157; 99285; C1894; G0378; J0456; J0696; J0882; J1644; J1756; J1940; J2250; J2405; J3010; Q0162; C1750; C1751; J0360; J1642; J1815; J2310; J3475; J7030; J7050; U0003